=== PATIENT | female | born 1990 | race Caucasian/White ===

== ENCOUNTER 2016-09-22 19:10 | Emergency (ER) | payer OTHER ==
[~2016-09-22] VITALS: Ht 170.2 cm; Wt 74.2 kg
[~2016-09-22 19:10] MED LIST: CALC600T9 PO
[2016-09-22 19:23] VITALS: BP 122/80; TEMP 37; Ht 170.2 cm; Wt 74.2 kg
--- NOTE | 2016-09-22 20:11 | DIAGNOSTIC IMAGING REPORT ---
RIGHT ELBOW MIN 3 VIEWS ROUTINE CLINICAL HISTORY: Right elbow pain following injury. COMPARISON: None FINDINGS: Alignment of the right elbow is anatomic. No acute fracture or joint effusion is identified. IMPRESSION: No acute fracture or joint effusion of the right elbow. Electronically signed by: Renan Maria M.D. 09/22/2016 8:09 PM Dictated Date/Time: 09/22/2016 8:09 PM
[2016-09-22] MEDS ORDERED: DICL75TA2 PO (20:41)
[2016-09-22 20:52] VITALS: PULSE 70; O2SAT 100
--- NOTE | 2016-09-22 23:58 | EMERGENCY ROOM VISIT NOTE ---
ED Visit Note First contact with patient: 19:25 CHIEF COMPLAINT: Elbow pain HISTORY OF PRESENT ILLNESS: This 26-year-old patient presents to the emergency department complaining of pain in the right elbow after falling 2 weeks ago. The patient states that she was carrying her child walking to the bus stop for one of her other children. The patient slipped, and fell awkwardly and she did not want to drop the first child. She states that she has had persisting pain to the right elbow ever since. The patient rates their pain as dull and 5/10. The patient has taken nothing for relief of the pain. The patient has not had previous fractures to this elbow. The patient does not have any numbness or tingling. The patient denies any other injuries. REVIEW OF SYSTEMS: A 6 system review of systems was completed with positives and pertinent negatives listed in the HPI. ALLERGIES: Coconut MEDICATIONS: No chronic medications PMH: Otherwise healthy SOCIAL HISTORY: Lives locally with family PHYSICAL EXAM: Vital Signs: Reviewed Nurse's notes, vital signs stable. GENERAL : White female, in no acute distress, well-developed, well-nourished. SKIN: The skin was without rashes, erythema, edema, warmth, or bruising. Capillary reflex less than 3 seconds. MUSCULOSKELETAL: There is tenderness over the lateral aspect of the right elbow. There is tenderness with flexion and supination of the right elbow. There is no tenderness of the shoulder, wrist, or hand. The patient is able to give a thumbs up, make an OK sign, and a #3 with their fingers. Radial pulse 2+. NEURO: Patient was alert and oriented to person place and time. Normal sensation to light and sharp touch. RIGHT ELBOW MIN 3 VIEWS ROUTINE CLINICAL HISTORY: Right elbow pain following injury. COMPARISON: None FINDINGS: Alignment of the right elbow is anatomic. No acute fracture or joint effusion is identified. IMPRESSION: No acute fracture or joint effusion of the right elbow. EMERGENCY DEPARTMENT COURSE: Physical exam and history were performed. Nursing notes and EMR were reviewed. The patient appears to have fallen about 2 weeks ago suffering injury to her right elbow. She does have some palpable tenderness, and x-ray was performed. X-ray does not show acute fracture or effusion. I suspect her injury is related to the contusion, and should improve over time. I will provide her a course of diclofenac for pain control. She is to follow with orthopedics with any ongoing or persisting symptoms. The patient was pleased with plan of care and voiced understanding. Problem List Medical Problems: (1) Bronchitis Status: Chronic (2) PID (acute pelvic inflammatory disease) Status: Resolved (3) UTI (urinary tract infection) Status: Resolved Current/Historical Medications Scheduled Calcium Carbonate-Vitamin D (Calcium + D), 1 TAB PO DAILY Diclofenac Sodium (Voltaren), 75 MG PO BID Allergies Coded Allergies: Coconut (Verified Allergy, Unknown, RASH, 07/23/16) Vital Signs Date Time Temp Pulse Resp B/P Pulse Ox O2 Delivery O2 Flow Rate FiO2 09/22/16 20:52 70 18 100 09/22/16 19:23 37.0 74 16 122/80 100 Room Air Departure Information Impression Primary Impression: Fall Additional Impression: Injury of right elbow Dispostion Home / Self-Care Condition FAIR Prescriptions Diclofenac Sodium (VOLTAREN) 75 Mg Tab 75 MG PO BID for 10 Days, #20 TAB Prov: Xavier Chauhan PA-Macy 09/22/16 Referrals Calvin Hylton MD Forms HOME CARE DOCUMENTATION FORM, IMPORTANT VISIT INFORMATION Patient Instructions My [facility] Additional Instructions You were seen and evaluated today on an emergency basis only. This is not a substitute for, or an effort to provide, complete comprehensive medical care. It is not possible to recognize and treat all injuries or illnesses in a single emergency department visit. For this reason it is recommended that you followup with [facility] , Dr. Hylton's office, if symptoms persist over the next 1-2 weeks. Take diclofenac 75 mg twice daily for the next week. Take this medication with food. You are welcome to return to the emergency department anytime with new, worsening, or concerning symptoms.
== END 2016-09-22 20:53 | disposition home or self-care (01) ==
LOC: C.EDB 19:12 → C.EDD 20:53
DX: S59.901A Unspecified injury of right elbow, initial encounter (principal); W01.0XXA Fall on same level from slipping, tripping and stumbling without subsequent striking against object, initial encounter; Y93.01 Activity, walking, marching and hiking; Z91.018 Allergy to other foods; Z86.19 Personal history of other infectious and parasitic diseases; Z87.440 Personal history of urinary (tract) infections

== ENCOUNTER → 2017-01-31 | Outpatient (CLI) | payer OTHER ==
[~2017-01-31] MED LIST changes: +ACET325T96 PO; +AMOX500T3 PO; +IBUP-1050 PO; +OXYC1TAB3 PO
== END ==
LOC: C.PAPS 15:19
PROVIDERS: ATTEND Obstetrics & Gynecology
DX: Z12.4 Encounter for screening for malignant neoplasm of cervix (principal)

== ENCOUNTER → 2017-04-06 | Outpatient (CLI) | payer OTHER | END | disposition home or self-care (01) | LOC: C.LABPVFM 07:37 | PROVIDERS: ATTEND Nurse Practitioner Family | DX: E55.9 Vitamin D deficiency, unspecified (principal) ==

== ENCOUNTER → 2017-04-29 | Outpatient (CLI) | payer OTHER ==
[2017-04-29 13:14] LABS: PREG INTERNAL NEGATIVE QC NEG CLEAR BACKGROUND; PREG INTERNAL POSITIVE QC POS CONTROL LINE
[2017-04-29 13:28] LABS: URINE APPEARANCE CLOUDY (CLEAR); URINE BILIRUBIN NEG (NEG); URINE COLOR YELLOW; URINE EPITHELIAL CELL AUTO 20-30 /lpf (0-5); URINE NITRITE POS (NEG); URINE PH 8.5 (4.5-7.5); URINE SPECIFIC GRAVITY 1.018 (1.000-1.030); UROBILINOGEN NEG (NEG)
[2017-04-29 13:29] LABS: BLOOD UREA NITROGEN 8 mg/dl (7-18); CALCIUM 8.2 mg/dl (8.5-10.1); CARBON DIOXIDE 26 mmol/L (21-32); CHLORIDE 108 mmol/L (98-107); CREATININE 0.65 mg/dl (0.60-1.20); GLUCOSE 91 mg/dl (70-99); SODIUM 138 mmol/L (136-145)
[2017-04-29 13:30] LABS: MANUAL MICROSCOPIC REQUIRED? NO; REVIEW REQ? NO
== END | disposition home or self-care (01) ==
LOC: C.LABPVFM 09:34
PROVIDERS: ATTEND Nurse Practitioner Family
DX: R39.15 Urgency of urination (principal); R63.5 Abnormal weight gain

== ENCOUNTER → 2017-05-12 | Outpatient (CLI) | payer OTHER | END | disposition home or self-care (01) | LOC: C.LABPVFM 17:45 | PROVIDERS: ATTEND Nurse Practitioner Family | DX: N39.0 Urinary tract infection, site not specified (principal) ==

== ENCOUNTER 2017-05-25 20:26 | Emergency (ER) | payer OTHER ==
[~2017-05-25] VITALS: Ht 170.2 cm; Wt 75.7 kg
[~2017-05-25 20:26] MED LIST changes: -ACET325T96 PO; -AMOX500T3 PO; -IBUP-1050 PO; -OXYC1TAB3 PO
[2017-05-25 21:36] VITALS: TEMP 36.8; Ht 170.2 cm; Wt 75.7 kg
[2017-05-25] MEDS ORDERED: AMOX500T3 PO (22:36)
[2017-05-25] MEDS ORDERED: OXYC1TAB3 PO (22:36)
--- NOTE | 2017-05-25 22:37 | EMERGENCY ROOM VISIT NOTE ---
ED Visit Note First contact with patient: 22:12 CHIEF COMPLAINT: Dental pain HISTORY OF PRESENT ILLNESS: This 27-year-old female patient presented to the emergency department ambulatory complaining of dental pain. The patient states that she has 2 chipped left upper molars. She has had some pain off and on, but states that she had severe pain beginning early this morning. She called the dentis and has an appointment in approximately one month. She rates her overall discomfort an 8/10. The pain is now steady and severe and radiates to the face. The ibuprofen and Tylenol they have been taking has not relieved the pain. Denies facial swelling or fever. The patient denies any discharge from the mouth. REVIEW OF SYSTEMS: A 6 system review of systems was completed with positives and pertinent negatives listed in the HPI. ALLERGIES: No known drug allergies MEDICATIONS: See med list PMH: No significant past medical history. SOCIAL HISTORY: The patient lives locally with family. Nonsmoker. PHYSICAL EXAM: Vitals are noted on the nurse's note and reviewed by myself. Vital signs stable. Temperature 36.8C orally. GENERAL: This is a 27-year-old female, in no acute distress, nondiaphoretic, well-developed well-nourished. Mouth: The left upper molars are broken off and very carious. There is inflammation of the surrounding gums. There is no discharge or evidence of an abscess. The remainder of the pharynx and tonsils are without erythema, edema, or exudate. The airway is patent. There is no facial swelling, cervical or submandibular lymphadenopathy. The patient appears uncomfortable and in pain. The patient has overall average dental hygiene. EARS: External auditory canals clear, tympanic membranes pearly klein without erythema or effusion bilaterally. ED COURSE: The patient was evaluated as above. The patient will be placed on amoxicillin for probable dental infection. She was given a short course of pain medication for this. She does have an appointment with a dentist but was encouraged to call them to see if she can move her appointment up if possible. She was encouraged to return here for any symptoms of worsening infection. She verbalized understanding of my assessment and treatment plan and was discharged home in good condition. Blood pressure screening: Patient was found to have normal blood pressure on screening and does not require follow-up. Medication reconciliation: I attest that I have personally reviewed the patient 's current medication list. Patient was reviewed in the [place] prescription drug monitoring program; no red flags were identied. DIAGNOSIS: Odontalgia Problem List Medical Problems: (1) Bronchitis Status: Chronic (2) PID (acute pelvic inflammatory disease) Status: Resolved (3) UTI (urinary tract infection) Status: Resolved Current/Historical Medications Scheduled Amoxicillin (Amoxil), 500 MG PO QID Calcium Carbonate-Vitamin D (Calcium + D), 1 TAB PO DAILY Scheduled PRN Acetaminophen Tab (Tylenol), 650 MG PO DIRECTED PRN for Pain Ibuprofen (Advil), 200-600 MG PO Q4H PRN for Pain Oxycodone Ir (Roxicodone Ir), 1-2 TAB PO Q4H PRN for Pain Allergies Coded Allergies: Coconut (Verified Allergy, Unknown, RASH, 05/25/17) Vital Signs Date Time Temp Pulse Resp B/P (MAP) Pulse Ox O2 Delivery O2 Flow Rate FiO2 05/25/17 23:11 80 20 128/72 98 05/25/17 21:36 36.8 66 20 116/75 99 Room Air Medications Administered Medications (Trade) Dose Ordered Sig/Zackary Route Start Time Stop Time Status Last Admin Dose Admin Oxycodone HCl (Roxicodone Immediate Rel 5MG Home Pack) 1 homepack UD ONCE PO 05/25/17 22:45 05/25/17 22:46 DC 05/25/17 23:10 1 HOMEPACK Amoxicillin (Amoxil 250MG Home Pack) 1 homepack UD ONCE PO 05/25/17 22:45 05/25/17 22:46 DC 05/25/17 23:10 1 HOMEPACK Departure Information Impression Primary Impression: Dental caries Dispostion Home / Self-Care Condition GOOD Prescriptions Amoxicillin (AMOXIL) 500 Mg Tab 500 MG PO QID for 10 Days, #40 TAB Prov: Emilee Palma PA-C 05/25/17 Oxycodone Ir (Roxicodone Ir) 5 Mg Tab 1-2 TAB PO Q4H Y for Pain, #15 TAB For Initial Treatment Prov: Emilee Palma PA-C 05/25/17 Referrals No Doctor, Assigned (PCP) Patient Instructions My [facility] Additional Instructions You have been treated in the Emergency Department for Dental Pain. You have been prescribed Oxy IR to be used for pain control. This is a narcotic medication. You cannot drive or consume alcohol while on this medicine. This medicine should only be used for pain that cannot be controlled with over-the- counter pain medicines. You were prescribed amoxicillin to be taken 4 times daily as prescribed. This is an antibiotic. All antibiotics have the potential to cause diarrhea. Stop this medication and contact a medical provider if you were to develop any significant adverse side effects including: wheezing, shortness of breath, passing out, vomiting, or a diffuse rash. Always take antibiotics as directed and COMPLETE the ENTIRE course regardless of the improvement of your symptoms. For pain control, you can use the following esof-wwt-klpzyeo medicines (if >12 yo): - Regular strength (325mg/tab) Tylenol (acetaminophen) 2 tabs every 4-6 hours as needed. Do not exceed 12 tablets in a 24 hour period. Avoid taking more than 4 grams (4000 mg) of Tylenol per day. This includes any other sources of acetaminophen you may take on a regular basis. - Regular strength (200 mg/tab) Advil (ibuprofen) 1-2 tabs every 4-6 hours as needed. Do not exceed a dose of 3200 mg per day. Refrain from smoking cigarettes or using chewing tobacco until you have been evaluated by your dentist. Keeping beverages lukewarm and consuming soft foods can decrease your pain. Warm compresses over the affected area may offer some relief. You MUST seek evaluation of your dental pain by a dentist following your visit to the Emergency Department. The Emergency Department is not capable of treating dental issues long-term. You should call your dentist as soon as possible to make an appointment for evaluation of your dental pain. Return to the emergency department if you develop the following symptoms despite treatment course outlined above: fever, intractable pain, increased redness, swelling, or purulent discharge.
[2017-05-25] MEDS ORDERED: ACET325T96 PO (22:39)
[2017-05-25] MEDS ORDERED: IBUP-1050 PO (22:39)
[2017-05-25] MEDS ORDERED: OXYCODONE IR HOME PACK PO ONE (22:45)
[2017-05-25] MEDS ORDERED: AMOXICILLIN HOME PACK 250 MG/TAB PO ONE (22:45)
[2017-05-25 23:11] VITALS: BP 128/72; PULSE 80; O2SAT 98
== END 2017-05-25 23:11 | disposition home or self-care (01) ==
LOC: C.EDB 20:27 → C.EDC 23:11
DX: K02.9 Dental caries, unspecified (principal); K08.89 Other specified disorders of teeth and supporting structures

== ENCOUNTER → 2017-09-19 | Outpatient (CLI) | payer OTHER ==
[~2017-09-19] MED LIST changes: +ACET325T96 PO; +AMOX500T3 PO; +IBUP-1050 PO; +OXYC1TAB3 PO
== END | disposition home or self-care (01) ==
LOC: C.LABSPEC 17:40
PROVIDERS: ATTEND Physician Assistant
DX: Z11.3 Encounter for screening for infections with a predominantly sexual mode of transmission (principal)

== ENCOUNTER → 2018-04-13 | Outpatient (CLI) | payer OTHER ==
[~2018-04-13] MED LIST changes: +ACET-1693 PO; -ACET325T96 PO; -OXYC1TAB3 PO
== END | disposition home or self-care (01) ==
LOC: C.LABPVFM 07:59
PROVIDERS: ATTEND Obstetrics & Gynecology
DX: N93.9 Abnormal uterine and vaginal bleeding, unspecified (principal)